=== PATIENT | female | born 1975 | race African-American/Black ===

== ENCOUNTER 2021-03-25 14:31 | Emergency (ER) | payer BC ==
[~2021-03-25] VITALS: Ht 160 cm; Wt 68.0 kg
[2021-03-25 14:34] VITALS: BP 116/92
--- NOTE | 2021-03-25 15:17 | NUR ---
left without being seen by MD, states "i want to take her to another hospital".
== END 2021-03-25 15:17 | disposition left against medical advice (07) ==
LOC: ER 14:35
DX: M25.561 Pain in right knee (principal)